=== PATIENT | female | born 1960 | race Caucasian/White ===

== ENCOUNTER 2021-01-11 12:30 | Day surgery (SDC) | payer OTHER ==
[~2021-01-11] VITALS: Ht 160 cm; Wt 70.2 kg
[~2021-01-11 12:30] MED LIST: Adipex-P37.5 MG PO; ESZO1 PO; TRAZ100 PO
[2021-01-11] MEDS ORDERED: NAPR220 (13:22)
== END 2021-01-11 14:59 | disposition home or self-care (01) ==
LOC: ORSCSDS 12:30
PROVIDERS: Internal Medicine Gastroenterology
PROC: 0DBL8ZX Excision of Transverse Colon, Via Natural or Artificial Opening Endoscopic, Diagnostic (ICD-10-PCS; principal; 2021-01-11 13:45)
PROC: 0DBN8ZX Excision of Sigmoid Colon, Via Natural or Artificial Opening Endoscopic, Diagnostic (ICD-10-PCS; principal; 2021-01-11 13:45)
DX: Z12.11 Encounter for screening for malignant neoplasm of colon (principal); D12.3 Benign neoplasm of transverse colon; K57.30 Diverticulosis of large intestine without perforation or abscess without bleeding; K64.8 Other hemorrhoids
CPT/HCPCS: 88305; J2704; J7120

== ENCOUNTER 2021-09-01 00:16 | Emergency (ER) | payer OTHER ==
[~2021-09-01] VITALS: Ht 160 cm; Wt 77.1 kg
[~2021-09-01 00:16] MED LIST changes: +NAPR220
[2021-09-01 00:48] LABS: BASOPHILS ABSOLUTE AUTO 0.09 K/mm3 (0.00-0.23); BASOPHILS PERCENT AUTO 1 % (0-2); EOSINOPHILS ABSOLUTE AUTO 0.32 K/mm3 (0.00-0.68); EOSINOPHILS PERCENT AUTO 4 % (0-6); Hematocrit 43.6 % (33.0-51.0); Hemoglobin 14.4 g/dL (11.5-16.0); IMMATURE GRAN ABSOLUTE AUTO 0.04 K/mm3 (0.00-0.10); IMMATURE GRAN PERCENT AUTO 1 % (0-1); LYMPHOCYTES ABSOLUTE AUTO 2.46 K/mm3 (0.84-5.20); LYMPHOCYTES PERCENT AUTO 28 % (21-46); MONOCYTES ABSOLUTE AUTO 0.78 K/mm3 (0.16-1.47); MONOCYTES PERCENT AUTO 9 % (4-13); Mean Corpuscular HGB 28.9 pg (26.0-34.0); Mean Corpuscular Volume 87 fL (80-100); Mean Platelet Volume 9.2 fL (9.1-12.4); NEUTROPHILS ABSOLUTE AUTO 5.03 K/mm3 (1.96-9.15); NEUTROPHILS PERCENT AUTO 58 % (41-73); Platelet Count 327 K/mm3 (150-400); RDW Coefficient Variation 13.2 % (11.7-14.2); RDW Standard Deviation 42.3 fL (35.1-46.3); Red Blood Cell Count 4.99 M/mm3 (3.80-5.20); White Blood Cell Count 8.72 K/mm3 (4.00-11.30)
[2021-09-01 01:09] LABS: Alanine Aminotransfer (ALT/SGP 45 U/L (12-78); Albumin, Blood 3.3 g/dL (3.4-5.0); Albumin/Globulin Ratio 0.9 (0.8-1.8); Alk Phos 69 U/L (50-136); Anion Gap 7 mmol/L (6-16); Aspartate Aminotrans (AST/SGOT 19 U/L (12-37); Bilirubin, Total 0.2 mg/dL (0.1-1.0); Blood Urea Nitrogen 13 mg/dL (8-24); Bun/Creatinine Ratio 13.9 (12.0-20.0); CO2, Blood 25 mmol/L (21-32); Calcium, Blood 9.5 mg/dL (8.5-10.1); Chloride, Blood 108 mmol/L (98-108); Creatinine, Blood 0.94 mg/dL (0.40-1.00); Globulin, Blood 3.6 g/dL (2.2-4.0); Glomerular Filtration Rate >60 (60-); Glucose, Blood 115 mg/dL (70-99); Potassium, Blood 4.2 mmol/L (3.5-5.5); Sodium, Blood 140 mmol/L (136-145); Total Protein, Blood 6.9 g/dL (6.4-8.2); Troponin I <0.015 ng/mL (0.000-0.040)
== END 2021-09-01 03:56 | disposition home or self-care (01) ==
LOC: ER 00:16
PROVIDERS: Student in an Organized Health Care Education/Training Program
DX: R07.89 Other chest pain (principal); Z88.0 Allergy status to penicillin; Z79.891 Long term (current) use of opiate analgesic
CPT/HCPCS: 36415; 71045; 80053; 84484; 85025; 93005; 93010; 99285-25

== ENCOUNTER → 2021-11-24 | Outpatient (CLI) | payer OTHER | LOC: LAB SHORT 09:45 | PROVIDERS: Family Medicine | DX: Z01.419 Encounter for gynecological examination (general) (routine) without abnormal findings (principal) | CPT/HCPCS: G0145 ==

== ENCOUNTER 2024-07-09 06:15 | Day surgery (SDC) | payer OTHER ==
[~2024-07-09] VITALS: Ht 160 cm; Wt 63.4 kg
[2024-07-09] VITALS (13 sets, daily range): BP systolic 104–134; BP diastolic 70–82
[2024-07-09] MEDS ORDERED: Lactated Ringer's 1,000 ML IV SCH (06:20)
[2024-07-09] MEDS ORDERED: Clindamycin 600mg in D5W 50 ML IV SCH (06:22)
[2024-07-09] MEDS ORDERED: Gentamicin Sulfate 100 MG in NS 100 ML IV SCH (06:22)
[2024-07-09] MEDS ORDERED: Adipex-P37.5 M1 PO (06:41)
--- NOTE | 2024-07-09 06:54 | NUR ---
History, Chart, Medications and Allergies reviewed before start of procedure. Pre-Op teaching done. Pt verbalizes understanding. Patient confirms NPO status and agrees with scheduled surgery. PT BELONGINGS BAG PLACED UNDER GURNEY. PT GAVE GLASSES TO SISTER AT BS.
[2024-07-09] MEDS ORDERED: Bupivacaine 0.5% HCl 5 MG/ML 30MLVIAL ONE (07:08)
[2024-07-09] MEDS ORDERED: EpiNEPhrine 1 MG/1 ML 1ML Vial ONE (07:08)
[2024-07-09] MEDS ORDERED: propofoL 20 ML IV ONE (07:27)
[2024-07-09] MEDS ORDERED: Rocuronium Bromide 10 MG/ML 5ML Injection IV ONE ×2 (07:27→09:12)
[2024-07-09] MEDS ORDERED: FentaNYL Citrate 50 MCG/ML 2 ML Injection ONE (07:28)
[2024-07-09] MEDS ORDERED: ePHEDrine Sulfate 50 MG/ML 1ML Injection ONE (09:55)
[2024-07-09] MEDS ORDERED: Ondansetron HCl 2 MG / ML 2ML Vial ONE (10:05)
[2024-07-09] MEDS ORDERED: Metoclopramide HCl 5MG / ML 2ML Vial ONE (10:05)
[2024-07-09] MEDS ORDERED: Dexamethasone Sod Phos 10 MG/ML 1ML VIAL ONE (10:05)
[2024-07-09] MEDS ORDERED: Sugammadex Sodium 200 MG/2ML SDV (100 MG/ML) ONE (11:22)
[2024-07-09] MEDS ORDERED: HYDROmorphone HCl/Pf 1MG SYR ONE (11:24)
[2024-07-09] MEDS ORDERED: Metoclopramide HCl 10 MG Tab PO PRN (11:30)
[2024-07-09] MEDS ORDERED: FentaNYL Citrate 50 MCG/ML 2 ML Injection IV PRN (11:30)
[2024-07-09] MEDS ORDERED: DiphenhydrAMINE HCL 25 MG Cap PO PRN (11:30)
[2024-07-09] MEDS ORDERED: Acetaminophen 500 MG Tab PO PRN (11:30)
[2024-07-09] MEDS ORDERED: FLU VACC TS2024-25(6MOS UP)/PF 45 MCG/0.5 ML SYRINGE IM PRN (11:30)
[2024-07-09] MEDS ORDERED: Ondansetron HCl 2 MG / ML 2ML Vial IV PRN (11:30)
[2024-07-09] MEDS ORDERED: OxyCODONE HCL 5 MG TAB PO PRN ×2 (11:30→11:35)
[2024-07-09] MEDS ORDERED: Simethicone 80 MG Chew PO PRN (11:35)
[2024-07-09] MEDS ORDERED: Ketorolac Tromethamine 30mg Vial IV SCH (12:00)
--- NOTE | 2024-07-09 15:58 | NUR ---
Pt. is awake in bed when she welcomes my visit. family are at bedside and nurese is prepping Pt. for discharge. Facilitate a life review. Consider matters of rome and belief. Pt. displays evidence of awareness and engagement. Pt. requested that this it security consulting director pray for her. Prayed with Pt. Pt. and family both verbalized gratitude for the spiritual care visit.
--- NOTE | 2024-07-09 16:15 | NUR ---
POST OP: REPORT RECEIVED FROM DRAIN TILE PRESS OPERATOR. PT TO UNIT AT 1240. PT IS A/O, VSS. PT DENIES PAIN AT THIS TIME. SURGICAL SITE WNL. SCANT VAGINAL BLEED NOTED. PT GIVEN CALL LIGHT AND ASKED TO CALL FOR 1ST TIME OOB.
[2024-07-09] MEDS ORDERED: IBUP800 PO (17:04)
[2024-07-09] MEDS ORDERED: OXAYDO5 M1 PO (17:05)
--- NOTE | 2024-07-09 17:20 | NUR ---
DISCHARGE: PT IS VOIDING, WALKING AND PAIN MANAGED. DR. STOUT IN ROOM AT ABOUT 1700- OK FOR DC. DC PACKET PRINTED AND PT EDUCATED. PT ALREADY PICKED UP SCRIPTS. PT LEFT UNIT AT ABOUT 1730 VIA WHEELCHAIR WITH FAMILY
== END 2024-07-09 17:35 | disposition home or self-care (01) ==
LOC: ORSCMMR 06:15 → ORD 07:30 → SURS 12:16 → ORSCMMR 17:35
PROVIDERS: Obstetrics & Gynecology
PROC: 0JQC0ZZ Repair Pelvic Region Subcutaneous Tissue and Fascia, Open Approach (ICD-10-PCS; principal; 2024-07-09 07:30)
PROC: 0UB74ZZ Excision of Bilateral Fallopian Tubes, Percutaneous Endoscopic Approach (ICD-10-PCS; principal; 2024-07-09 07:30)
PROC: 0UT94ZZ Resection of Uterus, Percutaneous Endoscopic Approach (ICD-10-PCS; principal; 2024-07-09 07:30)
DX: N81.89 Other female genital prolapse (principal)
CPT/HCPCS: 88307; A9270; J0171; J1100; J1171; J1580; J1885; J2405; J2704; J2765; J3010; J7120